=== PATIENT | female | born 1995 | race Caucasian/White ===

== ENCOUNTER → 2024-08-13 | Outpatient (BNVA) | payer MEDICARE, MEDICAID, SELFPAY | END | disposition home or self-care (01) | PROVIDERS: PCP Nurse Practitioner Family; Referring Provider Nurse Practitioner Family; Visit Provider Nurse Practitioner Family | DX: M54.40 Lumbago with sciatica, unspecified side (principal); F90.9 Attention-deficit hyperactivity disorder, unspecified type; F32.A Depression, unspecified; F43.11 Post-traumatic stress disorder, acute | CPT/HCPCS: 99214 ==

== ENCOUNTER → 2024-08-29 | Outpatient (BNVA) | payer MEDICARE, MEDICAID, SELFPAY | END | disposition home or self-care (01) | PROVIDERS: PCP Nurse Practitioner Family; Referring Provider Nurse Practitioner Family; Visit Provider Nurse Practitioner Family | DX: Z00.01 Encounter for general adult medical examination with abnormal findings (principal); F43.12 Post-traumatic stress disorder, chronic; F32.A Depression, unspecified; F90.9 Attention-deficit hyperactivity disorder, unspecified type; Z13.220 Encounter for screening for lipoid disorders; Z13.1 Encounter for screening for diabetes mellitus; Z11.3 Encounter for screening for infections with a predominantly sexual mode of transmission; E66.9 Obesity, unspecified; Z68.30 Body mass index [BMI] 30.0-30.9, adult | CPT/HCPCS: 99215 ==

== ENCOUNTER → 2024-09-05 | Outpatient (BNVA) | payer MEDICARE, MEDICAID, SELFPAY | END | disposition home or self-care (01) | PROVIDERS: PCP Nurse Practitioner Family; Referring Provider Nurse Practitioner Family; Visit Provider Nurse Practitioner Family | DX: Z71.2 Person consulting for explanation of examination or test findings (principal); E55.9 Vitamin D deficiency, unspecified; E78.5 Hyperlipidemia, unspecified; R94.5 Abnormal results of liver function studies; R94.8 Abnormal results of function studies of other organs and systems; E66.9 Obesity, unspecified; Z68.30 Body mass index [BMI] 30.0-30.9, adult | CPT/HCPCS: 99213 ==

== ENCOUNTER → 2024-09-13 | Outpatient (BNVA) | payer MEDICARE, MEDICAID, SELFPAY | END | disposition home or self-care (01) | PROVIDERS: PCP Nurse Practitioner Family; Referring Provider Nurse Practitioner Family; Visit Provider Nurse Practitioner Family | DX: K12.2 Cellulitis and abscess of mouth (principal); Z12.4 Encounter for screening for malignant neoplasm of cervix; N76.0 Acute vaginitis | CPT/HCPCS: 81001; 99215; Q0091 ==

== ENCOUNTER → 2024-09-20 | Outpatient (CLI) | payer MEDICARE, MEDICAID, SELFPAY ==
--- NOTE | 2024-09-20 09:44 | XR_ITS ---
Examination: Bilateral hands, 4 views. Technique: AP, lateral each hand total 4 views Exam date and time: September 20, 2024 1031 hours INDICATIONS: Numbness in hands beginning 10 years ago. FINDINGS: Mild juxta-articular bone demineralization No fracture or dislocation involving either hand No erosive or other significant arthritic change involving either hand No avascular necrosis IMPRESSION: No erosive or other significant arthritic change involving either hand
--- NOTE | 2024-09-20 09:44 | XR_ITS ---
Examination: Bilateral wrists 4 views Technique one AP lateral right and left wrist total 4 views Exam date and time: September 20, 2024 1050 hours INDICATIONS: Bilateral hand numbness beginning 10 years ago. FINDINGS: Mild osteopenia. No fracture or dislocation involving either wrist No avascular necrosis. No erosive or other significant arthritic change involving either wrist IMPRESSION: No erosive or other arthritic change involving either wrist
== END | disposition home or self-care (01) ==
PROVIDERS: Referring Provider Nurse Practitioner Family; Visit Provider Nurse Practitioner Family
DX: M25.532 Pain in left wrist (principal); M25.531 Pain in right wrist; M79.642 Pain in left hand; M79.641 Pain in right hand; G89.29 Other chronic pain
CPT/HCPCS: 73100; 73120

== ENCOUNTER → 2024-09-25 | Outpatient (BNVA) | payer MEDICARE, MEDICAID, SELFPAY | END | disposition home or self-care (01) | PROVIDERS: PCP Nurse Practitioner Family; Referring Provider Nurse Practitioner Family; Visit Provider Nurse Practitioner Family | DX: Z71.2 Person consulting for explanation of examination or test findings (principal); N76.0 Acute vaginitis; A49.3 Mycoplasma infection, unspecified site | CPT/HCPCS: 99213 ==

== ENCOUNTER → 2024-10-05 | Outpatient (BNVA) | payer MEDICARE, MEDICAID, SELFPAY | END | disposition home or self-care (01) | PROVIDERS: PCP Nurse Practitioner Family; Referring Provider Nurse Practitioner Family; Visit Provider Nurse Practitioner Primary Care | DX: M25.542 Pain in joints of left hand (principal); M79.641 Pain in right hand; M25.532 Pain in left wrist; M25.531 Pain in right wrist | CPT/HCPCS: 96372; 99214; J1885 ==